=== PATIENT | female | born 1940 | race Caucasian/White ===

== ENCOUNTER 2016-06-23 08:20 | Inpatient (IN) | payer MEDICARE, BC, OTHER ==
[~2016-06-23] VITALS: Ht 175.3 cm; Wt 82.5 kg
--- NOTE | ~2016-06-23 | DS ---
ADMIT: 07/19/2016 RM/LOC: 527 [facility] MR#: [id number] [facility]#: [id number] [address] [id number] PEÑA MCGHEE [address] [place] [address] General Discharge Summary SEX: F AGE: 76 : 1940 ADMISSION DATE: 07/19/2016 DISCHARGE DATE: 07/22/2016 SERVICE: Neurosurgery. REASON FOR ADMISSION: 1. Degenerative lumbar stenosis. 2. Low back pain. PROCEDURE: Lumbar 1 through sacral 1 laminectomy. HOSPITAL COURSE: Ms. Mcghee tolerated her procedure well. Postoperatively, she was taken to the Med-Surg floor for monitoring and care. She did work with Physical Therapy and Occupational Therapy and tolerated this quite well. Postop day #1, she was awake and alert. She was oriented x4. Her OLIVER drain was patent with serosanguineous drainage. She was moving all extremities x4 with 5/5 strength. Her dressing was clean, dry, and intact. She continued to work with Physical Therapy and Occupational Therapy. Postop day #2, she was awake and alert. She was afebrile. Her vital signs were stable. She was moving all extremities x4 with 5/5 strength. She had no pain in her lower legs any longer. She was complaining of some incisional pain. Her OLIVER drain was patent with serosanguineous drainage. Her On-Q was patent but was empty; therefore, was discontinued without difficulty. Her incision was clean, dry, and intact. She did continue to work with Physical Therapy and Occupational Therapy. Postop day #3, she was awake and alert. She was afebrile. Her vital signs were stable. She was moving all extremities x4. Her OLIVER drain was discontinued without difficulty. Her incision was clean, dry, and intact and no hematoma or cerebrospinal fluid accumulation was noted. She was ambulating, urinating, and defecating per her norm and was requesting discharge home. DISCHARGE CONDITION: Good. MEDICATIONS: 1. Colace 100 mg p.o. b.i.d. 2. Bacitracin ointment to incision q.p.m. 3. Flexeril 5 mg p.o. q.8 hours p.r.n. 4. Hydrocodone 5/325 one to two p.o. q.4 hours p.r.n. 5. Tylenol 650 mg p.o. q.4 hours p.r.n. 6. Levothyroxine 75 mcg q.a.m. 7. Lisinopril/hydrochlorothiazide 10/12.5 a half a tab at bedtime. 8. Multivitamin daily. 9. Docusate sodium 100 mg one capsule daily p.r.n. 10.Aleve 220 mg one tablet daily p.r.n. 11.Omeprazole 20 mg over the counter daily p.r.n. 12.Aspirin 81 mg at bedtime, may restart this on 07/23/2016. DISCHARGE INSTRUCTIONS: Per Dr. Sewell: She can have a regular diet. She ADMIT: 07/19/2016 RM/LOC: 527 [facility] MR#: [id number] [address] [place] [id number] [place] [address] General Discharge Summary SEX: F AGE: 76 : 1940 may shower, she should not take any tub baths, she should pat her incision dry. She should not lift anything greater than [address] not [address] while she is on medications. She will call with any questions or concerns including neurological worsening, signs or symptoms of infection, or any other issues. FOLLOWUP: She will follow up with Machelle in clinic in 2 weeks. DISPOSITION: She was discharged home. Total tuta-lv-uaor time for the discharge planning, care coordination was 30 minutes. Machelle Garrison APRN / Tuan Sewell MD / mira JOB #: [id number] CC: Tuan Sewell MD, Attending Physician Chuckie Villanueva MD, Family Physician
[~2016-06-23 08:20] MED LIST: ACID REDUCER10 MG PO; ASPIR 8181 MG PO; CELEBREX DPS200 MG PO; CENTRUM SILVER1 EAC1 PO; CEPACOL SORE T1 EAC1 PO; FLEXERIL-DPS10 MG PO; LEVOTHYROXINE100 MCG PO; OXY IR DPS5 MG PO; SENOKOT S1 TAB PO; TYLENOL DPS325 MG PO; ULTRAM DPS50 MG PO; VITAMIN D31000 UNIT PO; XARELTO10 MG PO; ZESTORETIC 10/11 TAB PO
[2016-07-23] MEDS ORDERED: SYNTHROID DP0.075 MG PO (16:55)
[2016-07-23] MEDS ORDERED: THERA1 EACH PO (16:55)
[2016-07-23] MEDS ORDERED: ZESTORETIC 10/11 TAB PO (16:55)
[2016-07-23] MEDS ORDERED: PRILOSEC DPS20 MG PO (16:56)
[2016-07-23] MEDS ORDERED: ASPIRIN EC81 MG PO (16:56)
[2016-07-23] MEDS ORDERED: ALEVE220 M1 PO (16:56)
[2016-07-23] MEDS ORDERED: COLACE-DPS100 MG PO ×2 (16:56→16:57)
[2016-07-23] MEDS ORDERED: BACITRACIN15 G1 TP (16:57)
[2016-07-23] MEDS ORDERED: FLEXERIL DPS5 MG PO (16:57)
[2016-07-23] MEDS ORDERED: TYLENOL DPS325 MG PO (16:58)
[2016-07-23] MEDS ORDERED: NORCO 5-325 TA1 EACH PO (16:58)
--- NOTE | 2016-07-29 13:42 | OR ---
ADMIT: 07/19/2016 RM/LOC: 527 [facility] MR#: [id number] [address] [address] PEÑA PINZON [address] [place] [address] Operative/Delivery Room Report SEX: F AGE: 76 : 1940 SURGERY DATE: 07/19/2016 SURGEON: Tuan Sewell MD PREOPERATIVE DIAGNOSIS: Severe lumbar stenosis with radiculopathy and neurogenic claudication with severe stenosis lumbar 1-2, 2-3, 3-4, 4-5, and lumbar 5-sacral 1. 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 PROCEDURES: 1. Wide laminectomy with foraminotomy and facet undercutting medially where necessary for decompression of the thecal sac and nerve roots through the neural foramen lumbar 1-2, 2-3, 3-4, 4-5, and lumbar 5-sacral 1. 2. Intraoperative use of fluoroscopy. PLATER HELPER: Machelle Garrison APRN DESCRIPTION OF PROCEDURE: After gaining informed consent, the patient was taken to the operative theater, placed under general endotracheal anesthesia supine position and turned prone on a Manuel table with all pressure points purposefully padded prior to performing the procedure. She was prepped and draped in sterile fashion. A time-out was utilized to ascertain the correct site and side of surgery as well as other pertinent patient historical information. Counts were obtained at the beginning and end of case with no change betwixt the two. Antibiotics given within 1 hour of incision. The fluoroscope was brought into the field, and attention was turned to delineating her prior scarred in area more on the left at lumbar 4-5. This incision was reopened and extended cephalad. This was then taken down to the thoracodorsal fascia, which was incised and then subperiosteal dissection was utilized to take the musculature off the spinous processes and laminae out to the facets with caution not to interrupt the facet capsules. Once this was done, self-retaining retractors were in placed and the laminectomy was begun. Various curettes, rongeurs, and the high-speed drill was used to resect as much of the posterior elements as was necessary undercutting the facets and encountering some scar tissue on the left to what appeared to be lumbar 4-5 with resection of overgrown ligamentum flavum and hypertrophied tissues otherwise with sounding into the lateral recesses and neural foramen bilaterally at the completion of the laminectomy at 1-2, 2-3, 3-4, 4-5, and lumbar 5-sacral 1. I was able to sound into the neural foramen at all levels, and there was discernible egress for the nerve roots. Once this was completed, attention was turned to gaining pristine hemostasis and closure. Thoracodorsal fascia was closed with simple interrupted 0 Vicryl, simple inverted interrupted 2-0 Vicryl was used in the hypodermic tissue, and ADMIT: 07/19/2016 RM/LOC: 527 [facility] MR#: [id number] [address] [place] [id number] JEROMYPEÑA [address] [place] [address] Operative/Delivery Room Report SEX: F AGE: 76 : 1940 subcuticular 3-0 Stratafix on the skin with Steri-Strips over that. Stab incisions were fashioned. The ropivacaine catheters were passed into the paraspinous musculature and loaded with 5 mL of 0.5% Marcaine on each side and then connected to the ropivacaine ball. The patient was extubated and taken to postanesthesia care unit. Ms. Garrison assisted with suction, retraction, and closure at the end of the case. COMPLICATIONS: None. ESTIMATED BLOOD LOSS: Charted. SPECIMEN: Posterior elements. Tuan Sewell MD/ mira JOB #: [id number] CC: Tuan Sewell, Attending Physician Chuckie Villanueva, Family Physician
== END 2016-07-22 11:05 | disposition home or self-care (01) | DRG 517 ==
LOC: 5MS 07-19 05:37 → WOR 07-19 05:37 → 5MS 07-19 09:18
PROVIDERS: ADMIT Neurological Surgery
PROC: 01NB0ZZ Release Lumbar Nerve, Open Approach (ICD-10-PCS; principal; 2016-07-19)
DX: M48.06 Spinal stenosis, lumbar region (principal); I35.0 Nonrheumatic aortic (valve) stenosis; I65.22 Occlusion and stenosis of left carotid artery; I10 Essential (primary) hypertension; K21.9 Gastro-esophageal reflux disease without esophagitis; E78.5 Hyperlipidemia, unspecified; E89.0 Postprocedural hypothyroidism; Z95.0 Presence of cardiac pacemaker; Z79.82 Long term (current) use of aspirin